=== PATIENT | female | born 1990 | race Hispanic/Latino ===

== ENCOUNTER 2023-11-24 19:07 | Emergency (ER) | payer OTHER ==
[2023-11-24] MEDS ORDERED: ONDANSETRON 4 MG (ODT) TAB ONE (19:33)
[2023-11-24] MEDS ORDERED: HYDROCODONE/APAP 7.5/325 MG TAB ONE (19:33)
[2023-11-24 20:01] LABS: Specific Gravity 1.016 (1.005-1.030)
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
[2023-11-24 20:52] VITALS: BP 105/70; TEMP 99.1; O2SAT 98
== END 2023-11-24 20:35 | disposition home or self-care (01) ==
LOC: ER 19:07
DX: S06.0X0A Concussion without loss of consciousness, initial encounter (principal); V49.50XA Passenger injured in collision with unspecified motor vehicles in traffic accident, initial encounter
CPT/HCPCS: 81025; 70450; 72125; 99283; Q0162